=== PATIENT | female | born 1965 | race Caucasian/White ===

== ENCOUNTER 2017-07-30 15:11 | Emergency (ER) | payer OTHER ==
[~2017-07-30] VITALS: Ht 160 cm; Wt 65.8 kg
[2017-07-30 16:00] LABS: ABSOLUTE BASOPHIL COUNT 0.1 /CUMM (0.0-0.2); ABSOLUTE EOSINOPHIL COUNT 0.1 /CUMM (0.0-0.7); ABSOLUTE GRANULOCYTE CT 5.7 /CUMM (1.4-6.5); ABSOLUTE LYMPH COUNT 1.7 /CUMM (1.2-3.4); ABSOLUTE MONOCYTE COUNT 0.3 /CUMM (0.10-0.60); BASOPHIL % 0.7 % (0.0-2.0); EOSINOPHIL % 1.4 % (0-5); GRANULOCYTE % 71.9 % (42.2-75.2); HEMATOCRIT 40.9 % (37-47); MEAN CORPUSCULAR HGB 29.8 PG (27.0-31.0); MEAN CORPUSCULAR HGB CONC 33.5 G/DL (33.0-37.0); MEAN CORPUSCULAR VOLUME 88.7 FL (81.0-99.0); MEAN PLATELET VOLUME 8.8 FL (7.4-10.4); PLATELET COUNT 271 /CUMM (130-400); RBC DISTRIBUTION WIDTH 13.4 % (11.5-14.5); RED BLOOD CELL CT 4.61 /CUMM (4.20-5.40)
--- NOTE | 2017-07-30 18:06 | RADIOLOGY REPORT ---
EXAMINATION: XR CHEST CLINICAL INFORMATION: 52-year-old female patient with chest pain and shortness of breath. Presumptive diagnosis: CHF, pneumonia. COMPARISON: None pertinent. CT of the abdomen and pelvis on 07/15/2016. TECHNIQUE: PA and lateral erect views of the chest. FINDINGS: Heart is normal in size. Pulmonary vascularity is normal. The lungs are symmetrically aerated and clear showing no evidence of consolidation or edema. The pleural spaces are clear. A dense paraspinal bone protuberance spans the level of T7-T8 on the left. This simulates a pulmonary nodule but is actually a large prominent exostosis or bone spur at this level as seen on the prior CT exam. IMPRESSION: Unremarkable examination. No pneumonia or CHF.
--- NOTE | 2017-07-30 20:19 | ED CARDIAC/CP/PALPITATIONS ---
History of Present Illness General Chief Complaint: Chest Pain Stated Complaint: CP/SOB X 3 DAYS Source: patient Exam Limitations: no limitations Vital Signs & Intake/Output Vital Signs & Intake/Output Vital Signs Date Time Temp Pulse Resp B/P B/P Pulse O2 O2 Flow FiO2 Mean Ox Delivery Rate 07/30 2053 98.2 68 18 134/74 98 Room Air 07/30 1954 98.2 76 20 128/83 98 Room Air 07/30 1946 98 Room Air ED Intake and Output 07/31 0000 07/30 1200 Intake Total 0 Output Total Balance 0 Intake, Oral 0 Patient 145 lb Weight Weight Reported by Patient Measurement Method Allergies Coded Allergies: NO KNOWN ALLERGIES (07/31/11) Reconcile Medications LORazepam (Ativan) 1 MG TAB 1 TAB PO BID PRN anxiety Triage Note: PT STATES SHE HAS A LOT OF STRESS MOTHER IN ICU HAS CA. PT REPORTS HER DOG OF 15 YEARS IS DYING. PT REPORTS BACK PAIN AND INDIGESTION FOR THE PAST 4 YEARS. PT STATES HER AUNT AT 54 FROM [place]. AND SHE HAS THE SAME S/S Triage Nurses Notes Reviewed? yes Onset: Abrupt Duration: day(s): (3-4), better, changing over time, continues in ED Timing: single episode today Quality/Severity: moderate, sharp Location: central Radiation: no radiation Activities at Onset: none Prior Chest Pain/Card Workup: no prior chest pain, no prior cardiac workup Nitro Today/Relief: no nitro taken today Aspirin Today: no aspirin today LMP (ages 10-50): unknown : No HPI: 42-year-old female with no significant medical history presents for evaluation of chest pain. Patient states that she first noticed the pain 3 or 4 days ago. The pain is located in the center of her chest described as pressure that is intermittently sharp. The pain started at rest. There is no alleviating or aggravating factors. She reports some mild shortness of breath not worse on exertion. No other associated symptoms. No hemoptysis lower extremity edema recent surgery coughing, lightheadedness, dizziness, sweats, chills, lower extremity edema,. She has no personal history of cardiac disease. She states that she just found out that her mother has cancer and she is in the ICU. She states that she had a similar situation back with her father 4 years ago she had chest pain that was evaluated. Patient states that the symptoms have improved significantly since first starting. Currently her pain is a 3 out of 10. She's not take any medicine for this. She does reports having an anxiety. (Jai Tovar) Past History Travel History Traveled to [place] past 21 day No Medical History Any Pertinent Medical History? see below for history Surgical History Surgical History: non-contributory Psychosocial History Who do you live with Spouse What is your primary language Austrian Tobacco Use: Never used ETOH Use: occasional use Illicit Drug Use: denies illicit drug use Family History Hx Contributory? No (Jai Tovar) Review of Systems Review of Systems Constitutional: Reports: no symptoms. EENTM: Reports: no symptoms. Respiratory: Reports: see HPI, short of breath. Cardiovascular: Reports: see HPI, chest pain. GI: Reports: no symptoms. Genitourinary: Reports: no symptoms. Musculoskeletal: Reports: no symptoms. Skin: Reports: no symptoms. Neurological/Psychological: Reports: see HPI, anxiety. Hematologic/Endocrine: Reports: no symptoms. Immunologic/Allergic: Reports: no symptoms. All Other Systems: Reviewed and Negative (Jai Tovar) Physical Exam Physical Exam General Appearance: well developed/nourished, no apparent distress, alert, awake Head: atraumatic, normal appearance Eyes: Bilateral: normal appearance, PERRL, EOMI. Ears, Nose, Throat: normal pharynx, normal ENT inspection, hearing grossly normal Neck: normal inspection, supple, full range of motion Respiratory: normal breath sounds, chest non-tender, no respiratory distress, lungs clear Cardiovascular: regular rate/rhythm, normal peripheral pulses Peripheral Pulses: 2+ radial (R), 2+ radial (L) Gastrointestinal: normal bowel sounds, soft, non-tender, no organomegaly Back: normal inspection, normal range of motion, no vertebral tenderness Extremities: normal inspection, normal range of motion, no edema Neurologic/Psych: no motor/sensory deficits, awake, alert, oriented x 3, normal gait Skin: intact, normal color, warm/dry Lymphatic: no anterior cervical darshana Core Measures ACS in differential dx? Yes CVA/TIA Diagnosis No Sepsis Present: No Sepsis Focused Exam Completed? No (Jai Tovar) Progress Differential Diagnosis: AMI, aortic dissection, atrial fibrillation, costochondritis, musculoskeletal pain, myocarditis, pancreatitis, pericarditis, pneumonia, pneumothorax, pulmonary embolism, PUD/GERD, PVCs/PACs, rib fracture, unstable angina Plan of Care: Orders Procedure Date/time Status TROPONIN LEVEL 07/30 1842 Complete EKG 07/30 1842 Active EKG 07/30 1516 Active Current Medications Sig/Junior Start time Last Medication Dose Stop Time Status Admin Alprazolam 0.5 MG ONCE ONE 07/31 1999 CAN (Xanax) 07/30 2000 Laboratory Tests 07/30/17 1847: Troponin I < 0.01 Patient seen and evaluated. She is reporting chest pain for the past 3-4 days after finding out her mother has cancer and is in the ICU. The pain is improved sniffily since first started. She has no cardiac history. She has no other associated symptoms. The pain is currently 3 out of 10. All blood work is within normal limits. Initial EKG troponin are negative D dimer is negative chest x-ray is clear. Patient was medicated with a dose of Ativan and will be reassessed. Heart score is 2. Complete resolution of symptoms after Ativan. Patient will be discharged home with cardiology follow-up. She had 2 negative EKGs 2 negative troponins. Reviewed all results of today's visit with patient. Discussed return precautions in detail follow-up with cardiology monitor symptoms return with any concerns. Case discussed with Dr. Shah he agrees. Diagnostic Imaging: Viewed by Me: Radiology Read. Discussed w/RAD: Radiology Read. CXR Impression: PATIENT: CHALINO RED PRESENT AGE: 52 PATIENT ACCOUNT NO: [id number] : 63 LOCATION: [facility] ORDERING PHYSICIAN: Jai MORALES SERVICE DATE: 07/30/17 EXAM TYPE: RAD - XRY-CHEST XRAY, TWO VIEWS EXAMINATION: XR CHEST CLINICAL INFORMATION: 52-year-old female patient with chest pain and shortness of breath. Presumptive diagnosis: CHF, pneumonia. COMPARISON: None pertinent. CT of the abdomen and pelvis on 07/15/2016. TECHNIQUE: PA and lateral erect views of the chest. FINDINGS: Heart is normal in size. Pulmonary vascularity is normal. The lungs are symmetrically aerated and clear showing no evidence of consolidation or edema. The pleural spaces are clear. A dense paraspinal bone protuberance spans the level of T7-T8 on the left. This simulates a pulmonary nodule but is actually a large prominent exostosis or bone spur at this level as seen on the prior CT exam. IMPRESSION: Unremarkable examination. No pneumonia or CHF. DICTATED BY: Petr Rodgers MD DATE/TIME DICTATED:07/30/171755 RECORDING CLERK:CARMITA DATE/TIME TRANSCRIBED:07/30/171755 CONFIDENTIAL, DO NOT COPY WITHOUT APPROPRIATE AUTHORIZATION. Initial ED EKG: no ST T wave changes, SINUS RHYTHM, LEFT ATRTIAL ABN Prior EKG: unchanged Repeat EKG: unchanged (Jai Tovar) Departure Departure Disposition: HOME OR SELF CARE Condition: Stable Clinical Impression Primary Impression: Chest pain Qualifiers: Chest pain type: unspecified Qualified Code: R07.9 - Chest pain, unspecified Referrals: Kayla RAMOS,Hany Woods MD,Dontrell Montesinos (PCP/Family) Additional Instructions: Continue to use Ativan every 12 hours as needed for anxiety. This may cause drowsiness. Do not drink alcohol with taking it. Make a follow-up appointment with provided director of physical security Dr. Lagos as soon as possible. Monitor symptoms closely return immediately with any concerns. Departure Forms: Customer Survey General Discharge Information Prescriptions: Current Visit Scripts LORazepam (Ativan) 1 TAB PO BID PRN anxiety #10 TAB (Jai Tovar) PA/CAFETERIA DIRECTOR Co-Sign Statement Statement: ED Attending supervision documentation- [X] I saw and evaluated the patient. I have also reviewed all the pertinent lab results and diagnostic results. I agree with the findings and the plan of care as documented in the PA's/CAFETERIA DIRECTOR's documentation. [] I have reviewed the ED Record and agree with the PA's/CAFETERIA DIRECTOR's documentation. [] Additions or exceptions (if any) to the PAs/CAFETERIA DIRECTOR's note and plan are summarized below: [] I saw and personally examined the patient and I agree with the PAs evaluation. (Darren LE,Norman Villa) Critical Care Note Critical Care Note Critical Care Time: non-applicable (Jai Tovar)
[2017-07-30] MEDS ORDERED: ATIVAN1 M1 PO (20:46)
[2017-07-30 20:54] VITALS: BP 134/74
== END 2017-07-30 20:55 ==
LOC: ERH 15:11
PROVIDERS: Physician Assistant Medical
DX: R07.89 Other chest pain (principal)
CPT/HCPCS: 71046; 93005; 93010